=== PATIENT | female | born 1970 | race Caucasian/White ===

== ENCOUNTER 2022-09-19 19:12 | Emergency (ER) | payer OTHER ==
[~2022-09-19] VITALS: Ht 154.9 cm; Wt 49.4 kg
[2022-09-19 19:14] VITALS: BP_SYST 114
[2022-09-19] MEDS ORDERED: NACL 0.9% 1,000 ML IV ONE (19:30)
[2022-09-19] MEDS ORDERED: MORPHINE 4 MG INJ. 4 MG/ML VIAL IVP ONE ×2 (19:30→21:45)
[2022-09-19] MEDS ORDERED: ONDANSETRON HCL 4 MG/2 ML VIAL IVP ONE (19:30)
[2022-09-19] MEDS ORDERED: PROPOFOL 200MG/ 20ML VIAL (DIPRIVAN) IV ONE (20:45)
[2022-09-19] MEDS ORDERED: OXYC-128 PO (22:19)
[2022-09-19] MEDS ORDERED: ONDA-8 TL (22:19)
[2022-09-19] MEDS ORDERED: IBUP-1969 PO (22:19)
[2022-09-19 22:50] VITALS: BP_SYST 118
== END 2022-09-19 22:50 | disposition home or self-care (01) ==
LOC: SED 19:12
DX: S93.05XA Dislocation of left ankle joint, initial encounter (principal); S82.851A Displaced trimalleolar fracture of right lower leg, initial encounter for closed fracture; Z79.899 Other long term (current) drug therapy; V18.0XXA Pedal cycle driver injured in noncollision transport accident in nontraffic accident, initial encounter; Y93.89 Activity, other specified; Y92.89 Other specified places as the place of occurrence of the external cause; Y99.8 Other external cause status
CPT/HCPCS: 99291; 27840; 96374; 96361; 96375; 73560; 73600; 73610; 73630; 96376; 99152; J2405; J2704; J2270; J7030